=== PATIENT | female | born 1945 | race Caucasian/White ===

== ENCOUNTER → 2017-12-20 | Outpatient (CLI) | payer OTHER, MEDICARE ==
--- NOTE | ~2017-12-20 | EKG ---
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: Rusty VERMA : 1945 Requested By: Chaim Maxwell Order Number: [id number] MD: Andrews Curtis Measurements Intervals [place] Rate: 50 P: 75 TN: 163 QRS: 38 QRSD: 91 T: 38 QT: 470 QTc: 429 Interpretive Statements Sinus bradycardia Otherwise no significant abnormality No previous ECG available for comparison Electronically Signed On 12-21-2017 8:06:08 TOW FEEDER by Andrews Curtis [email or web address] <ELECTRONICALLY SIGNED> By: Andrews Curtis MD, [facility] 12/21/17 0806 1316 1316 Andrews Curtis MD, FACC /EPI
[2017-12-20 13:04] LABS: HEMATOCRIT 40.6 % (37.0-47.0); HEMOGLOBIN 13.6 gm/dL (12.0-15.0); MCH 31.2 pg (26.0-34.0); MCHC 33.6 g/dL (28.0-37.0); MCV 92.9 fL (80.0-100.0); RBC 4.37 mil/uL (4.20-5.00); RDW 15.1 % (10.5-14.5)
== END ==
LOC: CV 12:40
PROVIDERS: Ophthalmology
DX: Z01.812 Encounter for preprocedural laboratory examination (principal); H02.411 Mechanical ptosis of right eyelid